=== PATIENT | male | born 1985 | race Two or more races ===

== ENCOUNTER 2020-03-22 09:31 | Outpatient (CLI) | payer OTHER | END 2020-03-22 23:59 | disposition home or self-care (01) | LOC: LAB 09:31 | PROVIDERS: ATTEND Student in an Organized Health Care Education/Training Program | DX: Z01.812 Encounter for preprocedural laboratory examination (principal); Z20.828 Contact with and (suspected) exposure to other viral communicable diseases | CPT/HCPCS: 87426; C9803; U0003 ==

== ENCOUNTER → 2020-03-27 | Day surgery (SDC) | payer OTHER ==
[~2020-03-27] MED LIST: BACITRACIN 50000 UNITS/VIAL ONE; BACITRACIN OPHTH OINT 3.5 GM TUBE ONE; BUPIVACAINE 0.5 % PF 150 MG/30 ML VIAL ONE; CLINDAMYCIN 900 MG/6 ML VIAL ONE; FENTANYL PF 100MCG/2ML AMPUL ONE; FENTANYL PF 250MCG/5ML AMPUL ONE; HYDROCODONE/APAP 5/325MG TABLET ONE; HYDROMORPHONE 1 MG/1 ML DISP.SYRIN ONE; METOCLOPRAMIDE HCL 10 MG/2 ML VIAL ONE; ONDANSETRON HCL/PF 4 MG/2 ML VIAL ONE
== END | disposition home or self-care (01) ==
LOC: DS 11:30
PROVIDERS: ATTEND Student in an Organized Health Care Education/Training Program
DX: M24.622 Ankylosis, left elbow (principal)
CPT/HCPCS: 24006; 24300; A6253; J1100; J1170; J1200; J1885; J2405 ×2; J2704; J2765; J3010 ×2; J3490 ×3